=== PATIENT | male | born 1935 | race Caucasian/White ===

== ENCOUNTER 2020-06-12 12:02 | Emergency (ER) | payer MEDICARE, OTHER ==
--- NOTE | 2020-06-12 13:46 | ER Document Report ---
ED Medical Screen (RME) - General Chief Complaint: Fever Stated Complaint: FEVER, COUGH, WEAKNESS, TROUBLE BREATHING Time Seen by Provider: 06/12/20 13:36 Primary Care Provider: NITESH SLATER MD [Primary Care Provider] - Follow up as needed Mode of Arrival: Wheelchair Information source: Patient Notes: 85-year-old male patient presenting to the emergency department with unknown complaint. Patient states he has memory issues. Patient denies all of the questions I have asked him. He does have a cough. He was seen here a few days ago for fever, cough and generalized weakness. He had a normal work-up at that time. Patient does not appear to be in any acute distress. I have greeted and performed a rapid initial assessment of this patient. A comprehensive ED assessment and evaluation of the patient, analysis of test results and completion of the medical decision making process will be conducted by additional ED providers. I have specifically instructed the patient or family members with the patient to immediately return to any nursing staff should anything change in the patient's condition or with their chief complaint. TRAVEL OUTSIDE OF THE [place] IN LAST 30 DAYS: No - Related Data Allergies/Adverse Reactions: erythromycin base Allergy (Verified 06/09/20 11:31) pneumococcal vaccine Allergy (Verified 06/09/20 11:31) flu vaccine Allergy (Uncoded 06/09/20 11:31) Past Medical History - Past Medical History Cardiac Medical History: Reports: Hx Congestive Heart Failure Pulmonary Medical History: Reports: Hx COPD Endocrine Medical History: Reports: Hx Diabetes Mellitus Type 2 GI Medical History: Reports: Hx Gastroesophageal Reflux Disease Past Surgical History: Reports: Hx Cardiac Catheterization - ptca Physical Exam - Vital signs Vitals: Temp Pulse Resp BP Pulse Ox 98.9 F 90 18 121/56 L 93 06/12/20 12:12 06/12/20 12:12 06/12/20 12:12 06/12/20 12:12 06/12/20 12:12 Course - Vital Signs Vital signs: Temp Pulse Resp BP Pulse Ox 98.9 F 90 18 121/56 L 93 06/12/20 12:12 06/12/20 12:12 06/12/20 12:12 06/12/20 12:12 06/12/20 12:12 Doctor's Discharge - Discharge Referrals: TOWARNICKY,NITESH R, MD [Primary Care Provider] - Follow up as needed
[2020-06-12 14:58] LABS: ABSOLUTE LYMPHOCYTES (AUTO) 1.7 10^3/uL (0.5-4.7); ABSOLUTE MONOCYTES (AUTO) 0.6 10^3/uL (0.1-1.4); ABSOLUTE NEUT (AUTO) 4.5 10^3/uL (1.7-8.2); BASOPHILS % (AUTO) 0.3 % (0-2); HEMATOCRIT 46.3 % (37.9-51.0); HEMOGLOBIN 15.8 g/dL (13.5-17.0); LYMPHOCYTES % (AUTO) 24.5 % (13-45); MEAN CORPUSCULAR HGB CONC 34.1 g/dL (32.0-36.0); MEAN CORPUSCULAR VOLUME 91 fl (80-97); MONOCYTES % (AUTO) 8.7 % (3-13); PLATELET COUNT 160 10^3/uL (150-450); RED CELL DISTRIBUTION WIDTH 13.2 % (11.5-14.0); SEGMENTED NEUTROPHILS % (AUTO) 66.5 % (42-78); TOTAL CELLS COUNTED % (AUTO) 100 %; WHITE BLOOD COUNT 6.7 10^3/uL (4.0-10.5)
[2020-06-12 15:19] LABS: ALBUMIN 4.2 g/dL (3.5-5.0); ALKALINE PHOSPHATASE 38 U/L (38-126); ANION GAP 13 (5-19); ASPARTATE AMINO TRANSFERASE 46 U/L (17-59); BILIRUBIN,DIRECT 0.1 mg/dL (0.0-0.4); BILIRUBIN,TOTAL 1.4 mg/dL (0.2-1.3); BLOOD UREA NITROGEN 18 mg/dL (7-20); CALCIUM 8.7 mg/dL (8.4-10.2); CARBON DIOXIDE 23 mmol/L (22-30); CHLORIDE 102 mmol/L (98-107); GLUCOSE 85 mg/dL (75-110); TOTAL PROTEIN 7.8 g/dL (6.3-8.2)
--- NOTE | 2020-06-12 17:07 | RADIOLOGY REPORT (SQ) ---
EXAM DESCRIPTION: CHEST SINGLE VIEW IMAGES COMPLETED DATE/TIME: 06/12/2020 5:00 pm REASON FOR STUDY: cough COMPARISON: 06/09/2020 EXAM PARAMETERS: NUMBER OF VIEWS: One view. TECHNIQUE: Single frontal radiographic view of the chest acquired. RADIATION DOSE: NA LIMITATIONS: None. FINDINGS: LUNGS AND PLEURA: No opacities, masses or pneumothorax. No pleural effusion. MEDIASTINUM AND HILAR STRUCTURES: No masses. Contour normal. HEART AND VASCULAR STRUCTURES: Heart normal in size. Normal vasculature. BONES: No acute findings. HARDWARE: None in the chest. OTHER: No other significant finding. IMPRESSION: NO ACUTE RADIOGRAPHIC FINDING IN THE CHEST. TECHNICAL DOCUMENTATION: JOB ID: [id number] 2010 [employer]- All Rights Reserved Reading location - IP/workstation name: [email or web address]
--- NOTE | 2020-06-12 17:48 | ER Document Report ---
ED General - General Chief Complaint: Fever Stated Complaint: FEVER, COUGH, WEAKNESS, TROUBLE BREATHING Time Seen by Provider: 06/12/20 13:36 Primary Care Provider: NITESH SLATER MD [Primary Care Provider] - Follow up as needed Mode of Arrival: Wheelchair TRAVEL OUTSIDE OF THE [place] IN LAST 30 DAYS: No - HPI Patient complains to provider of: fever Notes: patient has dementia so not best historian son has called and states he has had a fever and cough since being evaluated in the ED last week they are concerned for covid he is otherwise acting normally for him he denies any complaints to me (oriented to himself and place, not time) - Related Data Allergies/Adverse Reactions: erythromycin base Allergy (Verified 06/12/20 14:41) pneumococcal vaccine Allergy (Verified 06/12/20 14:41) flu vaccine Allergy (Uncoded 06/09/20 11:31) Past Medical History - General Information source: Patient - Social History Smoking Status: Unknown if Ever Smoked Family History: Reviewed & Not Pertinent - Past Medical History Cardiac Medical History: Reports: Hx Congestive Heart Failure Pulmonary Medical History: Reports: Hx COPD Endocrine Medical History: Reports: Hx Diabetes Mellitus Type 2 GI Medical History: Reports: Hx Gastroesophageal Reflux Disease Past Surgical History: Reports: Hx Cardiac Catheterization - ptca Review of Systems - Review of Systems -: Yes ROS unobtainable due to patient's medical condition - dementia Physical Exam - Vital signs Vitals: Temp Pulse Resp BP Pulse Ox 98.9 F 90 18 121/56 L 93 06/12/20 12:12 06/12/20 12:12 06/12/20 12:12 06/12/20 12:12 06/12/20 12:12 Interpretation: Normal - General General appearance: Appears well, Alert - HEENT Head: Normocephalic, Atraumatic Eyes: Normal Pupils: PERRL - Respiratory Respiratory status: No respiratory distress Chest status: Nontender Breath sounds: Normal Chest palpation: Normal - Cardiovascular Rhythm: Regular Heart sounds: Normal auscultation Murmur: No - Abdominal Inspection: Normal Distension: No distension Bowel sounds: Normal Tenderness: Nontender Organomegaly: No organomegaly - Back Back: Normal, Nontender - Extremities General upper extremity: Normal inspection, Nontender, Normal color, Normal ROM, Normal temperature General lower extremity: Normal inspection, Nontender, Normal color, Normal ROM, Normal temperature, Normal weight bearing. No: Heather's sign - Neurological Neuro grossly intact: Yes Cognition: Normal Orientation: Disoriented to time, Disoriented to events [place] Coma Scale Eye Opening: Spontaneous [place] Coma Scale Verbal: Oriented Chace Coma Scale Motor: Obeys Commands Chace Coma Scale Total: 15 Speech: Normal Motor strength normal: LUE, RUE, LLE, RLE Sensory: Normal - Psychological Associated symptoms: Normal affect, Normal mood - Skin Skin Temperature: Warm Skin Moisture: Dry Skin Color: Normal Course - Re-evaluation Re-evalutation: 06/12/20 17:47 patient is well appearing and in no distress will test for covid given fever and age/comorbidities cxr is clear vitals are ok lab work is reassuring 06/12/20 18:26 covid swab sent and pending at time of discharge - Vital Signs Vital signs: Temp Pulse Resp BP Pulse Ox 98.9 F 90 18 121/56 L 93 06/12/20 12:12 06/12/20 12:12 06/12/20 12:12 06/12/20 12:12 06/12/20 12:12 - Laboratory Result Diagrams: 06/12/20 14:30 06/12/20 14:30 Laboratory results interpreted by me: 06/12/20 06/12/20 14:30 17:48 Est GFR (MDRD) Non-Af 56 L Total Bilirubin 1.4 H Urine Protein 30 H Urine Urobilinogen 2.0 H - Diagnostic Test Radiology reviewed: Image reviewed, Reports reviewed Discharge - Discharge Clinical Impression: Fever Qualifiers: Fever type: unspecified Qualified Code(s): R50.9 - Fever, unspecified Dementia Qualifiers: Dementia type: unspecified type Dementia behavioral disturbance: without behavioral disturbance Qualified Code(s): F03.90 - Unspecified dementia without behavioral disturbance Condition: Stable Disposition: HOME, SELF-CARE Instructions: Fever ([facility]) Additional Instructions: You have been swabbed for COVID 19 today in the ED and will be notified of your result once it is available Return to the ED with worsening symptoms or concerns Use ibuprofen and/or tylenol to control your fever at home Referrals: NITESH SLATER MD [Primary Care Provider] - Follow up as needed
[2020-06-12 18:22] LABS: APPEARANCE,URINE CLEAR; BILIRUBIN,URINE NEGATIVE (NEGATIVE); COLOR,URINE AMBER; GLUCOSE, URINE NEGATIVE (NEGATIVE); KETONES,URINE NEGATIVE (NEGATIVE); LEUKOCYTE ESTERASE,URINE NEGATIVE (NEGATIVE); NITRITE,URINE NEGATIVE (NEGATIVE); PROTEIN,URINE 30 mg/dL (NEGATIVE); URINE SPECIFIC GRAVITY 1.026
[2020-06-12 18:43] VITALS: BP 141/59
== END 2020-06-12 19:05 | disposition home or self-care (01) ==
LOC: ER 12:02
DX: U07.1 COVID-19 (principal); R50.9 Fever, unspecified; J44.9 Chronic obstructive pulmonary disease, unspecified; R05 Cough; F03.90 Unspecified dementia, unspecified severity, without behavioral disturbance, psychotic disturbance, mood disturbance, and anxiety; E11.9 Type 2 diabetes mellitus without complications; Z88.1 Allergy status to other antibiotic agents; Z88.7 Allergy status to serum and vaccine
CPT/HCPCS: 99284; 36415; 85025; 80053; 81001; 83880; 71045; U0003; C9803; 87635